=== PATIENT | male | born 1955 | race Two or more races ===

== ENCOUNTER 2020-01-02 23:32 | Inpatient (IN) | payer BC ==
[2020-01-02] MEDS ORDERED: MORPHINE SULFATE 4 MG/ML SYRINGE IV STA (23:42)
[2020-01-02] MEDS ORDERED: hydrALAZINE HCL 20 MG/ML 1 ML VIAL IVP STA (23:53)
--- NOTE | 2020-01-03 00:08 | ED ---
Chest Pain HPI - General Chief Complaint: Chest Pain Stated Complaint: chest pain Time Seen by Provider: 01/02/20 23:42 Source: patient, EMS Mode of arrival: ambulatory Limitations: no limitations - History of Present Illness Initial Comments: 64-year-old male who denies any past medical history who does not follow regularly with a primary care provider presenting to the emergency department today for chief complaint of left-sided chest burning on-and-off for the past 24 hours. Patient states it began again this evening. He states he also felt a bu rning sensation in his left arm. Patient denies any jaw pain back pain nausea vomiting abdominal pain leg swelling hemoptysis pain with inspiration. Patient denies any known history of coronary artery disease. Patient does not know if he has history of hypertension or diabetes. Patient isn't every day smoker. Patient states his Father from a myocardial infarction. Patient states he has experienced this a few weeks ago, but the sensation went away, patient denies any specific pattern with ambulating. Patient called EMS for transportation to the ER after experiencing increased symptoms this evening. Aspirin given in route 324mg chew. Patient asymptomatic on arrival to the ER. EKG no specific acute findings. - Related Data Allergies Allergy/AdvReac Type Severity Reaction Status Date / Time No Known Allergies Allergy Verified 01/02/20 23:45 Review of Systems ROS Statement: Those systems with pertinent positive or pertinent negative responses have been documented in the HPI. ROS Other: All systems not noted in ROS Statement are negative. EKG Findings - EKG Comments: EKG Findings:: Ventricular rate 62 bpm, [place] interval 194 ms, QRS station 102 ms, QT/QTC 420/426. His. This is normal sinus. There is some artifact noted in V1, nonspecific changes in V3, no st elevation or depression. EKG reviewed by attending provider. Past Medical History Past Medical History: No Reported History History of Any Multi-Drug Resistant Organisms: None Reported Past Surgical History: No Surgical Hx Reported Past Psychological History: No Psychological Hx Reported Smoking Status: Current every day smoker Past Alcohol Use History: None Reported Past Drug Use History: None Reported General Exam - General Exam Comments Initial Comments: General: The patient is awake and alert, in no distress, (-) levign sign Eye: +3 mm pupils are equal, round and reactive to light, extra-ocular movements are intact. No nystagmus. There is normal conjunctiva bilaterally. No signs of icterus. Ears, nose, mouth and throat: There are moist mucous membranes and no oral lesions. Neck: The neck is supple, there is no tenderness or JVD. Cardiovascular: There is a regular rate and rhythm. No murmur, rub or gallop is appreciated. Respiratory: Lungs are clear to auscultation, respirations are non-labored, breath sounds are equal. No wheezes, stridor, rales, or rhonchi. Gastrointestinal: Soft, non-distended, non-tender abdomen without masses or organomegaly noted. There is no rebound or guarding present. Musculoskeletal: Normal ROM, no tenderness. Strength 5/5. Sensation intact. Radial pulses equal bilaterally 2+. Neurological: A&O x 3. CN II-XII intact grossly, There are no obvious motor or sensory deficits. Coordination appears grossly intact. Speech is normal. Skin: Skin is warm and dry and no rashes or lesions are noted. NO LE edema. no calf pain or swelling. Psychiatric: Cooperative, appropriate mood & affect, normal judgment. Limitations: no limitations Course Vital Signs 01/02/20 01/02/20 01/02/20 23:36 23:55 23:56 Temperature 98.3 F Pulse Rate 66 64 73 Respiratory 16 0 L 14 Rate Blood Pressure 184/100 174/94 174/94 O2 Sat by Pulse 100 100 100 Oximetry 01/03/20 01/03/20 01/03/20 00:00 00:26 00:30 Temperature Pulse Rate 58 L Respiratory 20 13 Rate Blood Pressure 160/89 160/89 154/92 O2 Sat by Pulse 97 99 Oximetry 01/03/20 01/03/20 01/03/20 00:35 01:00 01:53 Temperature 97.8 F Pulse Rate 60 60 64 Respiratory 18 16 18 Rate Blood Pressure 151/96 155/86 175/95 O2 Sat by Pulse 99 99 97 Oximetry Chest Pain MDM - MDM 64-year-old male presenting today for chief complaint of turning sensation in the chest ongoing on and off for the past day worsening this evening. She also states it seems sensation is left arm. History is as noted above patient is every day smoker patient does not receive routine medical attention/or care. Patient EKG nonspecific findings. Initial troponin elevated. Patient initiated on heparin low intensity. Will be admitted for cardiology evaluation. Serial troponins ordered. Patient remains stable in the ER. Patient case discussed with Dr. Denton who is agreeable to admission and and care plan.She spoke with admitting providers. Disposition Clinical Impression: NSTEMI (non-ST elevated myocardial infarction), Chest discomfort, Elevated troponin Disposition: ADMITTED IP TO THIS HOSP Condition: Stable Is patient prescribed a controlled substance at d/c from ED?: No Referrals: None,Stated [Primary Care Provider] - 1-2 days Time of Disposition: 01:33 Decision to Admit Reason: Admit from EC Decision Date: 01/03/20 Decision Time: 01:33
[2020-01-03 00:10] LABS: Basophils % (A) 0 %; Eosinophils # (A) 0.4 k/uL (0-0.7); Eosinophils % (A) 4 %; HCT 49.8 % (39.0-53.0); HGB 16.5 gm/dL (13.0-17.5); Lymphocytes # (A) 2.7 k/uL (1.0-4.8); Lymphocytes % (A) 26 %; MCHC 33.1 g/dL (31.0-37.0); MCV 96.7 fL (80.0-100.0); Mean Platelet Volume 7.6; Monocytes # (A) 0.7 k/uL (0-1.0); Monocytes % (A) 6 %; Neutrophils # (A) 6.3 k/uL (1.3-7.7); Neutrophils % (A) 62 %; Platelet Count 161 k/uL (150-450); RBC 5.15 m/uL (4.30-5.90); RDW 13.4 % (11.5-15.5); WBC 10.3 k/uL (3.8-10.6)
--- NOTE | 2020-01-03 00:22 | XR ---
EXAMINATION TYPE: XR chest 2V DATE OF EXAM: 01/03/2020 COMPARISON: NONE HISTORY: Chest pain TECHNIQUE: FINDINGS: Heart is normal. There is some coarsening of interstitial markings. Costophrenic angles are clear. There is no heart failure. There is no pleural effusion. There are chest leads. There are no hilar masses. IMPRESSION: Mild coarsening of the lung markings could relate to mild fibrosis. Normal heart.
[2020-01-03 00:29] LABS: ALT 12 U/L (4-49); AST 33 U/L (17-59); African American GFR (CKD) >90 (>60 ml/min/1.73 sqM); Albumin 4.6 g/dL (3.5-5.0); Alkaline Phosphatase 90 U/L (38-126); Anion Gap 6 mmol/L; Blood Urea Nitrogen 24 mg/dL (9-20); Calcium 9.5 mg/dL (8.4-10.2); Carbon Dioxide 29 mmol/L (22-30); Chloride 104 mmol/L (98-107); Glucose 100 mg/dL (74-99); Non-African American GFR(CKD) >90 (>60 ml/min/1.73 sqM); Partial Thromboplastin Time 24.1 sec (22.0-30.0); Potassium 3.9 mmol/L (3.5-5.1); Prothrombin Time 10.4 sec (9.0-12.0); Sodium 139 mmol/L (137-145); Total Bilirubin 0.5 mg/dL (0.2-1.3); Total Protein 7.2 g/dL (6.3-8.2)
[2020-01-03] MEDS ORDERED: HEPARIN SODIUM,PORCINE 5,000 UNIT/ML 1 ML VIAL IV ONE (01:23)
[2020-01-03] MEDS ORDERED: HEPARIN SODIUM,PORCINE 5,000 UNIT/ML 1 ML VIAL IV PRN (01:23)
[2020-01-03] MEDS ORDERED: NITROGLYCERIN SL TABS 0.4 MG TAB SUBLINGUAL PRN ×3 (01:24→12:50)
[2020-01-03] MEDS ORDERED: HEPARIN SOD,PORK IN 0.45% NACL 25,000 UNIT in 0.45% NACL 1 250ML.BAG IV SCH (01:30)
[2020-01-03] MEDS ORDERED: NITROGLYCERIN OINT 1 INCH/GM PACKET TOPICAL STA (01:44)
[2020-01-03 01:54] VITALS: RESP 18
[2020-01-03] MEDS ORDERED: cloNIDine HCL 0.2 MG TAB PO PRN (02:30)
--- NOTE | 2020-01-03 05:12 | P.HPIM ---
History of Present Illness H&P Date: 01/03/20 Chief Complaint: chest pain 64-year-old male with no significant past medical history Patient comes in with 1 day history of chest pain described as dull achy pain retrosternal with radiation to the left elbow rated 5 out of 10 in severity patient had multiple episodes over the past 24 hours not related to activity first episodes have planned after dinner which she experienced 2- 3 weeks ago at that time resolved couple hours later after taking Tums in Pepto-Bismol, however yesterday started having the symptoms in the morning which was short-lived but then he had another episode. After dinner which lasted for a short time. And then he had another episode that woke him up from sleep his gave him some aspirin and called EMS and he was brought in here patient admits to smoking but has no other medical history. 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 in the ED, he had slightly elevated troponin , his EKG and CXR unremarkable patient otherwise, denies any headache, fever, chills, recent travel, sick contacts, abd pain , diarrhea, changes in smell or taste sensation. denies any focal neuro deficits Review of Systems Pertinent positives as noted in HPI. All other systems were reviewed and are negative Past Medical History Past Medical History: No Reported History History of Any Multi-Drug Resistant Organisms: None Reported Past Surgical History: No Surgical Hx Reported Past Psychological History: No Psychological Hx Reported Smoking Status: Current every day smoker Past Alcohol Use History: None Reported Past Drug Use History: None Reported - Past Family History family Family Medical History: No Reported History Additional Family Medical History / Comment(s): denies premature cad Medications and Allergies Allergies Allergy/AdvReac Type Severity Reaction Status Date / Time No Known Allergies Allergy Verified 01/02/20 23:45 Physical Exam Vitals: Vital Signs Temp Pulse Pulse Resp BP BP Pulse Ox 01/03/20 02:00 97.4 F L 89 18 189/89 97 01/03/20 01:53 97.8 F 64 18 175/95 97 01/03/20 01:00 60 16 155/86 99 01/03/20 00:35 60 18 151/96 99 01/03/20 00:30 13 154/92 99 01/03/20 00:26 58 L 20 160/89 97 01/03/20 00:00 160/89 01/02/20 23:56 73 14 174/94 100 01/02/20 23:55 64 0 L 174/94 100 01/02/20 23:36 98.3 F 66 16 184/100 100 Intake and Output 01/02/20 01/02/20 01/03/20 14:59 22:59 06:59 Other: Weight 99.79 kg Constitutional: No acute distress, conversant, pleasant Eyes: Anicteric sclerae, moist conjunctiva, no lid-lag Pupils equal round reactive to light ENMT: NC/AT Oropharynx clear, no erythema, or exudates Neck: Supple, FROM, no masses, or JVD No carotid bruits No thyromegaly Lungs: Clear to auscultation Clear to percussion Normal respiratory effort, no accessory muscle use Cardiovascular: Heart regular in rate and rhythm, No murmurs, gallops, or rubs No peripheral edema Abdominal: Soft Nontender, no guarding, rebound or rigidity Abdomen moving with respiration Normoactive bowel sounds No hepatomegaly, No splenomegaly No palpable mass No abdominal wall hernia noted Skin: Normal temperature, tone, texture, turgor No induration No subcutaneous nodules No rash, lesions No ulcers Extremities: No digital cyanosis No clubbing Pedal pulses intact and symmetrical Radial pulses intact and symmetrical No calf tenderness Psychiatric: Alert and oriented to person, place and time Appropriate affect fair judgement Neuro Muscles Strength 5/5 in all 4 extremities Sensation to light touch grossly present throughout Cranial nerves II-XII grossly intact No focal sensory deficits Lymphatics: no palpable cervical or supraclavicular , or inguinal lymph nodes Results CBC & Chem 7: 01/02/20 23:40 01/02/20 23:40 Labs: Abnormal Lab Results - Last 24 Hours (Table) 01/02/20 01/02/20 Range/Units 23:40 23:40 BUN 24 H (9-20) mg/dL Glucose 100 H (74-99) mg/dL Troponin I 0.055 H* (0.000-0.034) ng/mL Thrombosis Risk Factor Assmnt - Choose All That Apply Any of the Below Risk Factors Present?: No Assessment and Plan Assessment: 64 year old male with no significant past medical history , comes in with atypical chest pain , found to have elevated trops, admitted for NSTEMI, anticipated length of stay < 2 midnights NSTEMI atypical chest pain 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
[2020-01-03] MEDS ORDERED: ASPIRIN 325 MG TAB PO STA (08:56)
[2020-01-03] MEDS ORDERED: ALPRAZolam 0.5 MG TAB PO PRN (08:56)
[2020-01-03] MEDS ORDERED: SODIUM CHLORIDE 0.9% 1,000 ML in EMPTY BAG 1 BAG IV ONE (08:56)
[2020-01-03] MEDS ORDERED: ALPRAZolam 0.25 MG TAB PO PRN (08:56)
[2020-01-03] MEDS ORDERED: ATORVASTATIN 80 MG TAB PO STA (08:56)
[2020-01-03] MEDS ORDERED: ASPIRIN 325 MG TAB PO SCH (09:00)
[2020-01-03] MEDS ORDERED: HYDROcodone/APAP 5-325MG 1 EACH TAB PO PRN (09:17)
[2020-01-03] MEDS ORDERED: IBUPROFEN 600 MG TAB PO SCH (09:30)
[2020-01-03] MEDS ORDERED: LIDOCAINE 5% PATCH TOPICAL SCH (10:00)
--- NOTE | 2020-01-03 10:00 | ECHOF ---
Referral Reason:elevated troponin, chest pain MEASUREMENTS -------- HEIGHT: 177.8 cm WEIGHT: 100.7 kg BP: RVIDd: 3.7 cm (< 3.3) IVSd: 1.1 cm (0.6 - 1.1) LVIDd: 4.6 cm (3.9 - 5.3) LVPWd: 1.1 cm (0.6 - 1.1) IVSs: 1.7 cm LVIDs: 2.9 cm LVPWs: 1.9 cm LA Diam: 3.3 cm (2.7 - 3.8) LAESV Index (A-L): 26.15 ml/m Ao Diam: 3.3 cm (2.0 - 3.7) AV Cusp: 1.5 cm (1.5 - 2.6) MV EXCURSION: 25.336 mm (> 18.000) MV EF SLOPE: 178 mm/s (70 - 150) EPSS: 0.6 cm MV E Umang: 0.93 m/s MV DecT: 274 ms MV A Umang: 0.79 m/s MV E/A Ratio: 1.17 RAP: 5.00 mmHg RVSP: 24.64 mmHg TAPSE: 22.49 mm FINDINGS -------- Sinus rhythm. This was a technically adequate study. The left ventricular size is normal. There is borderline concentric left ventricular hypertrophy. Overall left ventricular systolic function is normal with, an EF between 55 - 60 %. The right ventricle is mild to moderately enlarged. Normal LA size by volume 22+/-6 ml/m2. The right atrial size is normal. Interatrial and interventricular septum intact. The aortic valve is trileaflet, and appears structurally normal. No aortic stenosis or regurgitation. The mitral valve is normal. Mild mitral regurgitation is present. Mild tricuspid regurgitation present. Right ventricular systolic pressure is normal at < 35 mmHg. The pulmonic valve was not well visualized. There is no pulmonic regurgitation present. The aortic root size is normal. Normal inferior vena cava with normal inspiratory collapse consistent with estimated right atrial pre ssure of 5 mmHg. The inferior vena cava is mildly dilated. There is no pericardial effusion. CONCLUSIONS -------- 1. There is borderline concentric left ventricular hypertrophy. 2. Overall left ventricular systolic function is normal with, an EF between 55 - 60 %. 3. The right ventricle is mild to moderately enlarged. 4. Normal LA size by volume 22+/-6 ml/m2. 5. The aortic valve is trileaflet, and appears structurally normal. No aortic stenosis or regurgitati on. 6. Mild mitral regurgitation is present. 7. Mild tricuspid regurgitation present. 8. Right ventricular systolic pressure is normal at < 35 mmHg. 9. The pulmonic valve was not well visualized. 10. Normal inferior vena cava with normal inspiratory collapse consistent with estimated right atrial pressure of 5 mmHg. 11. The inferior vena cava is mildly dilated. 12. There is no pericardial effusion. CORPORATE REPRESENTATIVE: Jenniffer Escobar RDCS
--- NOTE | 2020-01-03 11:26 | P.CRDCN ---
History of Present Illness Consult date: 01/03/20 Requesting physician: Rojas Sanchez Consult reason: chest pain Chief complaint: Chest pain History of present illness: This is a 64-year-old gentleman who smokes 2 packs of cigarettes per day, he denies any history of hypertension, no diabetes, no hyperlipidemia, no family history of premature coronary artery disease. Presents to the hospital with symptoms of midsternal chest burning and a burning sensation in the inner side of his left arm. According to the patient, he had symptoms approximately 2 weeks ago which he described as quite severe. He states he felt a burning sen sation in the center of his chest that almost reminded him of the severe heartburn feeling, he also had a discomfort in the inner forearm of his left arm. Patient took some Tums and Pepto-Bismol and ultimately the symptoms subsided. Yesterday again patient developed similar symptoms however this time they were much less severe, he did again take some Pepto-Bismol and Tums, the symptoms subsided, but when they returned a can patient became concerned and came to the hospital for further evaluation and treatment. His EKG on presentation here showed a normal sinus rhythm with no acute changes. Chest x- ray showed mild coarsening of the lung, possible pulmonary fibrosis. Blood pressure 128/60 with a heart rate in the 70s. CBC was normal, sodium 139, potassium 3.9, so chloride 104, CO2 29, BUN 24, creatinine 0.7. Troponin 0.055 and 0.137. AST and ALT were normal. At the time of our examination this morning the patient is currently chest pain-free. He has been advised to undergo cardiac catheterization, the risks and the benefits were explained to the patient in detail and he is willing to proceed. Past Medical History Past Medical History: No Reported History History of Any Multi-Drug Resistant Organisms: None Reported Past Surgical History: No Surgical Hx Reported Past Psychological History: No Psychological Hx Reported Smoking Status: Current every day smoker Past Alcohol Use History: None Reported Past Drug Use History: None Reported - Past Family History family Family Medical History: No Reported History Additional Family Medical History / Comment(s): denies premature cad Medications and Allergies Home Medications Medication Instructions Recorded Confirmed Type No Known Home Medications 01/03/20 01/03/20 History Allergies Allergy/AdvReac Type Severity Reaction Status Date / Time No Known Allergies Allergy Verified 01/03/20 07:54 Physical Exam Vitals: Vital Signs Temp Pulse Pulse Resp BP BP Pulse Ox 01/03/20 07:57 97.8 F 76 18 128/68 96 01/03/20 04:34 97.9 F 55 L 18 110/68 01/03/20 02:00 97.4 F L 89 18 189/89 97 01/03/20 01:53 97.8 F 64 18 175/95 97 01/03/20 01:00 60 16 155/86 99 01/03/20 00:35 60 18 151/96 99 01/03/20 00:30 13 154/92 99 01/03/20 00:26 58 L 20 160/89 97 01/03/20 00:00 160/89 01/02/20 23:56 73 14 174/94 100 01/02/20 23:55 64 0 L 174/94 100 01/02/20 23:36 98.3 F 66 16 184/100 100 Intake and Output 01/02/20 01/03/20 01/03/20 22:59 06:59 14:59 Intake Total 68.699 Balance 68.699 Intake: Intake, IV Titration 68.699 Amount Heparin Sod,Pork in 0.45% 68.699 NaCl 25,000 unit In 0.45 % NaCl 1 250ml.bag @ 10. 05 UNITS/KG/HR 10.029 mls /hr IV .Q24H [facility] Rx#: [id number] Other: Voiding Method Toilet # Voids 2 Weight 100.7 kg PHYSICAL EXAMINATION: GENERAL: 64-year-old gentleman in no acute distress at the time of my examination HEENT: Head is atraumatic, normocephalic. Pupils equal, round. Sclera anicteric. Conjunctiva are clear. Mucous membranes of the mouth are moist. Neck is supple. There is no elevated jugular venous pressure. No carotid bruit is heard. HEART EXAMINATION: Heart S1, S2 normal. No murmur or gallop heard. CHEST EXAMINATION: Lungs are clear to auscultation and precussion. No chest wall tenderness is noted on palpation or with deep breathing. ABDOMEN: Soft, nontender. Bowel sounds are heard. No organomegaly noted. EXTREMITIES: 2+ peripheral pulses with no evidence of peripheral edema and no calf tenderness noted. NEUROLOGIC patient is awake, alert and oriented 3 . . Results 01/02/20 23:40 01/02/20 23:40 Cardiac Enzymes 01/02/20 01/02/20 01/03/20 Range/Units 23:40 23:40 05:55 AST 33 (17-59) U/L Troponin I 0.055 H* 0.137 H* (0.000-0.034) ng/mL Coagulation 01/02/20 01/03/20 Range/Units 23:40 07:14 PT 10.4 (9.0-12.0) sec APTT 24.1 33.2 H (22.0-30.0) sec CBC 01/02/20 Range/Units 23:40 WBC 10.3 (3.8-10.6) k/uL RBC 5.15 (4.30-5.90) m/uL Hgb 16.5 (13.0-17.5) gm/dL Hct 49.8 (39.0-53.0) % Plt Count 161 (150-450) k/uL Comprehensive Metabolic Panel 01/02/20 Range/Units 23:40 Sodium 139 (137-145) mmol/L Potassium 3.9 (3.5-5.1) mmol/L Chloride 104 (98-107) mmol/L Carbon Dioxide 29 (22-30) mmol/L BUN 24 H (9-20) mg/dL Creatinine 0.71 (0.66-1.25) mg/dL Glucose 100 H (74-99) mg/dL Calcium 9.5 (8.4-10.2) mg/dL AST 33 (17-59) U/L ALT 12 (4-49) U/L Alkaline Phosphatase 90 (38-126) U/L Total Protein 7.2 (6.3-8.2) g/dL Albumin 4.6 (3.5-5.0) g/dL Current Medications Generic Name Dose Route Start Last Admin Trade Name Freq PRN Reason Stop Dose Admin Alprazolam 0.25 mg 01/03/20 08:56 Xanax PO Q6HR PRN Mild Anxiety Alprazolam 0.5 mg 01/03/20 08:56 Xanax PO Q6HR PRN Moderate Anxiety Aspirin 325 mg 01/03/20 09:00 01/03/20 08:32 Aspirin PO 325 mg DAILY DANNY Administration Clonidine 0.2 mg 01/03/20 02:30 01/03/20 02:26 Catapres PO 0.2 mg TID PRN Administration Blood Pressure - High Heparin Sodium (Porcine) 0 unit 01/03/20 01:23 01/03/20 08:37 Heparin IV 4,000 unit PER PROTOCOL PRN Administration Low PTT Protocol Heparin Sodium/Sodium Chloride 250 mls @ 10.029 mls/hr 01/03/20 01:30 01/03/20 08:32 25,000 unit/ Sodium Chloride IV 13.05 units/kg/hr .Q24H DANNY 13.023 mls/hr Titration Protocol 10.05 UNITS/KG/HR Sodium Chloride 1,000 ml/ IV 1,000 mls @ 100.7 mls/hr 01/03/20 08:56 Solution IV 01/03/20 18:51 .Q9H56M ONE 1 ML/KG/HR Nitroglycerin 0.4 mg 01/03/20 01:24 Nitrostat SUBLINGUAL Q5M PRN Chest Pain Nitroglycerin 0.4 mg 01/03/20 08:56 Nitrostat SUBLINGUAL Q5M PRN Chest Pain Intake and Output 01/02/20 01/03/20 01/03/20 22:59 06:59 14:59 Intake Total 68.699 Balance 68.699 Intake: Intake, IV Titration 68.699 Amount Heparin Sod,Pork in 0.45% 68.699 NaCl 25,000 unit In 0.45 % NaCl 1 250ml.bag @ 10. 05 UNITS/KG/HR 10.029 mls /hr IV .Q24H [facility] Rx#: [id number] Other: Voiding Method Toilet # Voids 2 Weight 100.7 kg 01/02/20 23:40 01/02/20 23:40 EKG Interpretations (text) EKG shows a normal sinus rhythm with no acute changes. Assessment and Plan Plan: Assessment and plan #1 symptoms of midsternal chest burning with associated diaphoresis, troponins 0.05, 0.13, EKG shows normal sinus rhythm with no acute changes. Clinical picture suggestive of acute coronary syndrome #2 nicotine dependence, patient's smokes 2 packs of cigarettes per day. #3 cardiac risk factors negative for hypertension, no diabetes, no hyperlipidemia, no family history of premature coronary artery disease. Plan We will obtain an echocardiogram with Doppler study. Patient has also been advised to undergo cardiac catheterization, the risks and the benefits were explained to the patient in detail and he is willing to proceed. This will be performed this afternoon by Dr. Talya Huffman further recommendations will be based on those findings and the patient's clinical course. DNP note has been reviewed, I agree with a documented findings and plan of care. Patient was seen and examined.
[2020-01-03] MEDS ORDERED: LIDOCAINE 1% INJ 10MG/ML (20 ML MDV) ONE (11:29)
[2020-01-03] MEDS ORDERED: IV FLUID CONTINUATION 1,000 ML IV ONE (11:30)
[2020-01-03] MEDS ORDERED: VERAPAMIL 2.5 MG/ML 2 ML AMP ONE (11:37)
[2020-01-03] MEDS ORDERED: HEPARIN SODIUM 1,000 UN/ML (10ML VL) ONE (11:37)
[2020-01-03] MEDS ORDERED: MIDAZOLAM 2 MG/2 ML VIAL IVP ONE (11:53)
[2020-01-03] MEDS ORDERED: LIDOCAINE 1% INJ 10MG/ML (20 ML MDV) SQ ONE (11:54)
[2020-01-03] MEDS ORDERED: VERAPAMIL SYRINGE (5 MG/10 ML) INTRAARTER ONE (11:55)
[2020-01-03] MEDS: HEPARIN SODIUM 1,000 UN/ML (10ML VL) IV ONE ×3 (11:58→12:33)
--- NOTE | 2020-01-03 11:59 | P.PN ---
Progress Note - Text Patient seen and examined at bedside, reports his chest pain at that 2 out of 10, echocardiogram recently done. Troponin trending up from 0.055 to 0.137. patient denies any shortness of breath or presyncope. Focused exam Cardiovascular: Regular rate and rhythm no murmurs or gallops Non-STEMI * Continue protocol IV heparin statin therapy and Platelets with aspirin * Echocardiogram echocardiogram EF 55-60% without any significant valvular abnormalities * Cardiology consulted planning to perform left heart catheterization * Continue current management
[2020-01-03] MEDS ORDERED: CLOPIDOGREL 75 MG TAB ONE (12:12)
[2020-01-03] MEDS ORDERED: TIROFIBAN BOLUS 12.5MG/250 ML BAG IV ONE (12:14)
[2020-01-03] MEDS ORDERED: CLOPIDOGREL 75 MG TAB PO ONE (12:15)
[2020-01-03] MEDS ORDERED: TIROFIBAN 12.5MG-250ML NS 250 ML IV ONE (12:15)
[2020-01-03] MEDS ORDERED: IOPAMIDOL-370 100ML BTL INJ ONE ×2 (12:24→12:45)
[2020-01-03] MEDS ORDERED: NITROGLYCERIN 1000MCG/10ML SYRINGE INTRACORON ONE (12:35)
[2020-01-03] MEDS ORDERED: MAG HYDROX/AL HYDROX/SIMETH 30 ML CUP PO PRN (12:50)
[2020-01-03] MEDS ORDERED: RX INFO: IV CONTRAST WAS GIVEN 1 EACH MISC MISCELLANE PRN (12:50)
[2020-01-03] MEDS ORDERED: ZOLPIDEM 5 MG TAB PO PRN (12:50)
[2020-01-03] MEDS ORDERED: ATROPINE SULFATE 0.1 MG/ML 10ML SYRINGE IV PRN (12:50)
[2020-01-03] MEDS ORDERED: TIROFIBAN 12.5MG-250ML NS 250 ML IV SCH (13:15)
--- NOTE | 2020-01-03 13:30 | CC ---
CARDIAC CATHETERIZATION REPORT DATE OF SERVICE: 01/03/2020. PROCEDURE: 1. Left heart catheterization and coronary angiography. 2. PTCA and stenting of mid circumflex coronary artery with a drug-eluting stent. PERFORMED BY: Dr. Primitivo Huffman. Moderate conscious sedation time was 48 minutes. Patient was administered Versed. Oxygen saturation, hemodynamics and EKG were monitored closely. CLINICAL INFORMATION: Mr. Chris Brown is a 64-year-old gentleman who smokes more than 2 packs a day, has hyperlipidemia and labile hypertension, does not take any regular medications. He came into the hospital with a chest _pain____ that has gone on for a couple of days last week and again persisted this week with elevated troponin suggestive of non-ST elevation TN. He was on heparin advised coronary angiography after due discussion regarding risks, benefits, and options. PROCEDURE NOTE: Under local anesthesia and strict aseptic precautions, a 6-Paragu[place] introducer was placed in the right radial artery. Using a JL3.5 and JR4.0 catheters I performed coronary angiography and the same right Ivonne catheter was used to check LV pressures. LV gram was not performed. Following the coronary angiography, I noted that he had a 99% stenosis in the mid circumflex and I performed intervention in the same setting. Following the intervention, the TR band was applied to secure hemostasis and oxygen saturation of the fingers of the right hand was 93%. CARDIAC CATHETERIZATION FINDINGS: The left ventricular end-diastolic pressure was about 12 to 13 mmHg without any gradient across aortic valve. CORONARY ANGIOGRAPHY FINDINGS: RIGHT CORONARY ARTERY: A very dominant vessel in the midportion has about a 55% narrowing after which the caliber improves and distally it bifurcates into PDA and PLV. PDA is larger. PLV smaller. In the midportion, PDA has a 60% narrowing. The RCA therefore is dominant, has a mid lesion of 55% and a PDA lesion of 60%. LEFT MAIN CORONARY ARTERY: Short patent vessel that bifurcates into LAD and circumflex. Mild tapering of the left main towards the distal portion. LEFT ANTERIOR DESCENDING CORONARY ARTERY: Good caliber vessel extends along the anterior wall. In the midportion, there is a narrowing of about 30% to 40%, it gives off a diagonal and septal branches runs all the way to the apex, supplies a sizable amount of myocardium. LAD has about a 30% to 40% mid lesion noted, not significant. LEFT POSTERIOR CIRCUMFLEX CORONARY ARTERY: Technically a nondominant vessel, gives off a high first obtuse marginal, almost looks like a ramus. No significant disease, supplies a sizable amount of myocardium. The circumflex then runs in the AV groove. In the midportion, there is a 99% stenosis and then distally it bifurcates into 2 branches. Mid circumflex has a 99% heavily calcified stenosis. This is probably the culprit lesion. LEFT VENTRICULOGRAM: Left ventriculogram was not performed. FINAL IMPRESSION: This patient has a 99% mid circumflex lesion, which was the culprit vessel. The dominant right coronary artery has a 55% mid lesion and a 60% PDA lesion. Left anterior descending artery has a mid 30% lesion. Normal filling pressures. No gradient across aortic valve. RECOMMENDATIONS: I recommended PCI of circumflex and perform this in the same setting. PCI PROCEDURE DETAILS: I used a JL3.5 guide catheter to cannulate the left coronary artery. A run- through wire was used to cross the lesion. I advanced a 3.0 balloon and dilated the lesion in the distal portion. I could not get a good seating of this balloon. After multiple attempts, I switched over to a 15 mm 2.75 caliber NC Trek balloon with this I gave a predilatation at 12 atmospheres. There was modest improvement. I then deployed a 15 mm long 3.5 caliber Xience stent at 12 atmospheres. Patient had chest pain and inferior ST elevation. Excellent angiographic result was achieved. The patient received a total of 6000 units of heparin and his ACT was 328. He also received Aggrastat bolus and infusion as per protocol. He received 600 mg of Plavix orally. Excellent angiographic result was achieved without complication. The findings were discussed with the patient and I talked to the by phone. MMODL / IJN: [id number] / [id number]
[2020-01-03 15:09] VITALS: BMI 31.8
[2020-01-03] MEDS: LOSARTAN 50 MG TAB PO SCH (18:17)
[2020-01-03] MEDS: SODIUM CHLORIDE 0.9% 1,000 ML IV SCH (19:21)
[2020-01-03] MEDS ORDERED: ATORVASTATIN 80 MG TAB PO SCH (21:00)
[2020-01-04 00:50] VITALS: TEMP 98.1
[2020-01-04 04:03] VITALS: BP 133/67; PULSE 58
[2020-01-04] MEDS: SODIUM CHLORIDE 0.9% 1,000 ML IV SCH (06:30)
[2020-01-04 07:30] LABS: Basophils % (A) 0 %; Eosinophils # (A) 0.3 k/uL (0-0.7); Eosinophils % (A) 3 %; HCT 49.5 % (39.0-53.0); HGB 16.1 gm/dL (13.0-17.5); Lymphocytes # (A) 1.6 k/uL (1.0-4.8); Lymphocytes % (A) 17 %; MCH 31.6 pg (25.0-35.0); MCHC 32.5 g/dL (31.0-37.0); MCV 97.4 fL (80.0-100.0); Mean Platelet Volume 7.3; Monocytes # (A) 0.6 k/uL (0-1.0); Monocytes % (A) 6 %; Neutrophils # (A) 6.8 k/uL (1.3-7.7); Neutrophils % (A) 73 %; Platelet Count 156 k/uL (150-450); RBC 5.08 m/uL (4.30-5.90); RDW 13.3 % (11.5-15.5); WBC 9.3 k/uL (3.8-10.6)
[2020-01-04 08:00] LABS: African American GFR (CKD) >90 (>60 ml/min/1.73 sqM); Anion Gap 4 mmol/L; Blood Urea Nitrogen 13 mg/dL (9-20); Carbon Dioxide 24 mmol/L (22-30); Chloride 109 mmol/L (98-107); Cholesterol 152 mg/dL (<200); Glucose 98 mg/dL (74-99); HDL Cholesterol 55 mg/dL (40-60); LDL Cholesterol,Calculated 82 mg/dL (0-99); Non-African American GFR(CKD) >90 (>60 ml/min/1.73 sqM); Potassium 4.3 mmol/L (3.5-5.1); Sodium 137 mmol/L (137-145); Triglycerides 73 mg/dL (<150)
[2020-01-04] MEDS: LOSARTAN 50 MG TAB PO SCH (08:56)
[2020-01-04] MEDS ORDERED: CLOPIDOGREL 75 MG TAB PO SCH (09:00)
[2020-01-04] MEDS ORDERED: ASPIRIN 325 MG TAB PO SCH (09:00)
[2020-01-04] MEDS ORDERED: METOPROLOL TARTRATE 12.5 MG TAB PO SCH (09:00)
[2020-01-04] MEDS ORDERED: ASPIRIN 81 MG PO SCH (09:00)
--- NOTE | 2020-01-04 12:03 | P.DS ---
Providers Date of admission: 01/03/20 10:47 Expected date of discharge: 01/04/20 Attending physician: Rojas Sanchez MD Consults: 01/03/20 01:24 Consult Physician Urgent Consulting Provider: Kiel Ortega Consult Reason/Comments: elevated troponin, chest pressure, suspected NSTEMI Do you want consulting provider notified?: Yes 01/03/20 12:50 Consult Physician Routine Consulting Provider: [facility] Consult Reason/Comments: Post Interventional patient Do you want consulting provider notified?: Already Contacted Primary care physician: Stated None Hospital Course: Discharge diagnoses Non-ST elevation RI Coronary artery disease with stenting Hyperlipidemia Smoker Hospital course The patient is a 64-year-old male that was admitted for acute coronary syndrome non-ST elevation RI after presenting with midsternal chest burning sensation, EKG on admission showed sinus mechanism without any acute ischemic or dynamic changes, troponins were 0.055 and 0.137. The patient was started on aspirin and beta blockers, IV heparin per chest pain orders and cardiology was consulted, left heart catheterization was recommended and performed resulting in stenting of mid circumflex artery secondary to a 99% lesion. Echocardiogram performed showed a preserved LVEF of 55-60% without any significant valvular abnormalities. The patient did well post catheterization without any significant complications and was subsequently discharged home in stable condition and instructed to follow-up with his PCP. This discharge process took approximately 35 minutes Focused exam Cardiovascular: Regular rate and rhythm no murmurs rubs or gallops Patient Condition at Discharge: Stable Plan - Discharge Summary Discharge Rx Participant: No New Discharge Prescriptions: New Aspirin 81 mg PO DAILY #30 chew Losartan [Cozaar] 50 mg PO DAILY #30 tab Atorvastatin [Lipitor] 80 mg PO HS #30 tab Metoprolol Tartrate [Lopressor] 12.5 mg PO DAILY #30 tab Nitroglycerin Sl Tabs [Nitrostat] 0.4 mg SUBLINGUAL Q5M PRN #25 tab PRN Reason: Chest Pain Clopidogrel [Plavix] 75 mg PO DAILY #30 tab Discharge Medication List Aspirin 81 mg PO DAILY #30 chew 01/04/20 [Rx] Atorvastatin [Lipitor] 80 mg PO HS #30 tab 01/04/20 [Rx] Clopidogrel [Plavix] 75 mg PO DAILY #30 tab 01/04/20 [Rx] Losartan [Cozaar] 50 mg PO DAILY #30 tab 01/04/20 [Rx] Metoprolol Tartrate [Lopressor] 12.5 mg PO DAILY #30 tab 01/04/20 [Rx] Nitroglycerin Sl Tabs [Nitrostat] 0.4 mg SUBLINGUAL Q5M PRN #25 tab 01/04/20 [Rx] Follow up Appointment(s)/Referral(s): Thi Huffman MD [STAFF PHYSICIAN] - 01/12/20 9:00 am (Chief Information Security Officer) [facility] [NON-STAFF] - (After discharge, you will follow-up with your residency director. Once you have obtained a prescription for cardiac rehab, please call [phone] to set up an evaluation.) Michela Leung, [REFERRING] - 3 Days (Office not currently taking new patients at this time. ) Patient Instructions/Handouts: *Surgery [facility] - After Heart Catheterization - Fermentation Manager Instructions, How to Stop Smoking (DC), Heart Healthy Diet (DC) Activity/Diet/Wound Care/Special Instructions: CARDIAC CATH 1. Support your puncture site by applying firm, steady pressure whenever you cough, laugh, sneeze or bear down to have a bowel movement (2-day restriction). 2. Watch for any excessive bruising, active bleeding, a firm knot forming under your skin, extreme tenderness and signs of infection (redness, swelling, fever). 3. Shower daily, do not soak puncture in a tub bath, jacuzzi, pool, sharma etc. for 1 week. This is to prevent risk of infection. 4. Drink plenty of fluids the day of and day after your procedure to flush contrast dye out of your kidneys. 5. Take all medications as directed. Never stop any new medication without your physicians OK. 6. No driving for 2 days after procedure. 7. 10- pound weight lifting restriction for 1 week. 8. Low sodium/low fat diet. 9. Activity limited until follow up appointment with your residency director. In case of any problems, please call [facility] [place] @ [phone]. Discharge/Stand Alone Forms: Work/Release Restrictions Form
--- NOTE | 2020-01-04 21:49 | PN ---
This gentleman presented with a non ST elevation MA. Had a normal LV function. Cath revealed a 99% mid circumflex that was stented. He has moderate disease in RCA and non critical disease in LAD. He is doing well. Post procedure course was unremarkable. Right radial cath site is clean and dry. His labs are pending. EKG is unremarkable. Vitals are stable. No JVD. S1, S2 heard normally. Lungs: Clear. Abdomen and Lower Extremities: Unchanged. Right radial cath site is clean and dry with a good pulse. PLAN; To increase activity, continue dual antiplatlet therapy. The patient has been counseled regarding the need to quit smoking. He can be discharged later on today and I will see him in the office in 1 week. BROOKE
--- NOTE | 2020-01-05 09:44 | PN ---
PROGRESS NOTE This gentleman presented with a non-ST elevation AR, had normal LV function. Cath revealed a 99% mid circumflex that was stented. He has moderate disease in RCA and noncritical disease in LAD. He is doing well. Postprocedure course was unremarkable. Right radial cath site is clean and dry. His labs are pending. EKG is unremarkable. Vitals are stable. No JVD. S1, S2 heard normally. Lungs are clear. Abdomen and lower extremity exam unchanged. Right radial cath site is clean and dry with a good pulse. Plan is to increase activity. Continue dual antiplatelet therapy. He has been counseled regarding the need to quit smoking. He can be discharged later on today and I will see him in the office in one week. MMODL / IJN: [id number] /
== END 2020-01-04 14:01 | disposition home or self-care (01) | DRG 247 ==
LOC: EC 23:32 → 3SCARD 01-03 01:44 → OBSVTOIN 01-03 10:47
PROVIDERS: ADMIT Internal Medicine; ATTEND Internal Medicine
PROC: 027034Z Dilation of Coronary Artery, One Artery with Drug-eluting Intraluminal Device, Percutaneous Approach (ICD-10-PCS; principal; 2020-01-03 11:30)
PROC: 4A023N7 Measurement of Cardiac Sampling and Pressure, Left Heart, Percutaneous Approach (ICD-10-PCS; principal; 2020-01-03 11:30)
PROC: B2111ZZ Fluoroscopy of Multiple Coronary Arteries using Low Osmolar Contrast (ICD-10-PCS; principal; 2020-01-03 11:30)
DX: I21.4 Non-ST elevation (NSTEMI) myocardial infarction (principal); E78.5 Hyperlipidemia, unspecified; I10 Essential (primary) hypertension; I25.10 Atherosclerotic heart disease of native coronary artery without angina pectoris; F17.210 Nicotine dependence, cigarettes, uncomplicated; Z71.6 Tobacco abuse counseling; Z82.49 Family history of ischemic heart disease and other diseases of the circulatory system
CPT/HCPCS: 36415; 71046; 80048; 80053; 80061; 83735; 84484; 85025; 85610; 85730; 93005; 93306; 93458; 96374; 96375; 99285